=== PATIENT | female | born 1985 | race Caucasian/White ===

== ENCOUNTER 2019-09-29 17:27 | Emergency (ER) | payer OTHER ==
[~2019-09-29] VITALS: Ht 157.5 cm; Wt 77.1 kg
[2019-09-29 17:40] VITALS: BP 119/70; Ht 157.5 cm; Wt 77.1 kg
== END 2019-09-29 20:43 | disposition home or self-care (01) ==
LOC: ED 17:27
DX: S06.0X9A Concussion with loss of consciousness of unspecified duration, initial encounter (principal); V49.3XXA Car occupant (driver) (passenger) injured in unspecified nontraffic accident, initial encounter; Y93.I9 Activity, other involving external motion; Y92.413 State road as the place of occurrence of the external cause; Y99.8 Other external cause status